=== PATIENT | female | born 1995 | race Caucasian/White ===

== ENCOUNTER → 2023-05-08 | Day surgery (SDC) | payer BC ==
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
[~2023-05-08] MED LIST: ACETIC ACID 15 DROPS/ML DROPS MISCELLANE ONE; BUPIVACAINE (PF) 0.5% 30 ML VIAL MISCELLANE ONE; DEXAMETHASONE SOD PHOSPHATE 4 MG/ML 1 ML VIAL IV ONE; FERRIC SUBSULFATE (MONSELS) JAR TOPICAL ONE; HYDROmorphone 0.5 MG/0.5 ML SYRINGE IVP PRN; IODINE/POTASSIUM IODIDE 14 ML BOTTLE TOPICAL ONE; LACTATED RINGERS 1,000 ML IV SCH; LIDOCAINE 1%-EPI 1:100,000 20 ML VIAL SUBMUCOSAL ONE; LIDOCAINE 2% INJ 20 MG/ML (2 ML VIAL) ONE; MIDAZOLAM 2 MG/2 ML VIAL ONE; ONDANSETRON 4 MG/2 ML VIAL IVP ONE; PROPOFOL 10 MG/ML 20 ML VIAL IV ONE; Pre Op ABX Message 1 EACH MISC MISCELLANE ONE; droPERidol 5 MG/2 ML VIAL IVP ONE; fentaNYL (PF) 50 MCG/ML 2 ML AMP ONE
--- NOTE | 2023-05-08 08:14 | P.OP ---
Date of Procedure: 05/08/23 Preoperative Diagnosis: LINO-1 and LINO-2 Postoperative Diagnosis: Cervical dysplasia Procedure(s) Performed: Colposcopy with loop electrocautery excision procedure Anesthesia: MELODYA Surgeon: Hyacinth Quinn Estimated Blood Loss (ml): 5 Pathology: other (Ectocervix with 12 o'clock position marked with a suture and separate piece is 6 o'clock position) Condition: stable Disposition: same day Indications for Procedure: This is a 27 y.o. of female, 1, para 1, who presents for colposcopy with loop electrocautery excision procedure due to LINO I and LINO II on colposcopy. 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 She has no plans for a future and would like definitive surgical treatment for this problem. Operative Findings: Faint acetowhite areas are noted around the entire cervix. No mosaicism was noted. Lugol white areas noted more prominently at the 6:00 border. Description of Procedure: The patient is taken to the operating room where she is placed in the dorsal lithotomy position. She is prepped and draped in the normal sterile fashion. Her bladder is drained with a catheter. A coated bivalve speculum was placed in the patient's vagina. Colposcopy is then performed using a blue light. Cervix is swabbed with 5% acetic acid solution. Transition zone is seen entirely. No specific abnormalities are visualized. Next Lugol solution is applied and a shiny white areas noted along the 6:00 border. No mosaicism was noted. Next the cervix was circumferentially injected with a 50-50 mixture of 1% lidocaine with epinephrine and half percent Marcaine. This is injected circumferentially around the cervix using a spinal needle. A total of about 6 mL were used. Next the large loop is used to swipe from left to right and then right to left using 35 W of cutting power. The specimen is removed from the field. There is still noted to be a little bit of Lugol white area noted along the 6:00 border. A separate swipe with the loop is taken to remove this portion of the specimen. Next the ball-tipped cautery was used to cauterize the bed left behind. Excellent hemostasis is noted. Monsel solution is applied. All instruments are removed from the vagina. The larger piece of ectocervix is marked at the 12 o'clock position with a white suture. The 6:00 piece is a separate piece. All sponge and needle counts are correct. The patient is then taken to recovery room in stable condition.
[2023-05-08 08:26] VITALS: RESP 16; TEMP 97.4
[2023-05-08 09:35] VITALS: BP 110/75; PULSE 74
== END | disposition home or self-care (01) ==
LOC: OR 06:20
PROVIDERS: ATTEND Obstetrics & Gynecology
DX: R87.613 High grade squamous intraepithelial lesion on cytologic smear of cervix (HGSIL) (principal); Z88.8 Allergy status to other drugs, medicaments and biological substances; Z79.899 Other long term (current) drug therapy
CPT/HCPCS: 81025; 88342; 88307; 57460; J2250; J1100; J2405; J3010; J2704; J1790; J2001; J0665

== ENCOUNTER 2024-04-24 06:00 | Inpatient (IN) | payer BC ==
[2024-04-24] MEDS: LACTATED RINGERS 1,000 ML IV SCH (06:25)
[2024-04-24 06:29] LABS: Glucose,Whole Blood 88 mg/dL (70-110)
[2024-04-24] MEDS ORDERED: METHYLERGONOVINE 0.2 MG/ML 1 ML AMP IM PRN (06:30)
[2024-04-24] MEDS ORDERED: TRANEXAMIC 1,000 MG/100ML-NACL 1,000 MG in EMPTY BAG 1 BAG IV PRN (06:30)
[2024-04-24] MEDS ORDERED: miSOPROStoL 200 MCG TAB RECTAL PRN (06:30)
[2024-04-24] MEDS ORDERED: OXYTOCIN 10 UNIT/ML 1 ML VIAL IM PRN (06:30)
[2024-04-24] MEDS ORDERED: LIDOCAINE 0.5% (PF) 5 MG/ML (50 ML SDV) SQ PRN (06:30)
[2024-04-24] MEDS ORDERED: CARBOPROST TROMETHAMINE 250 MCG/ML 1 ML AMP IM PRN (06:30)
[2024-04-24] MEDS ORDERED: OXYTOCIN 30 UNITS/500 ML NS 30 UNIT in SALINE 1 500ML.BAG IV SCH (06:30)
[2024-04-24] MEDS ORDERED: miSOPROStoL 200 MCG TAB PO PRN (06:30)
[2024-04-24] MEDS ORDERED: TERBUTALINE 1 MG/ML VIAL SQ PRN (06:30)
[2024-04-24] MEDS: OXYTOCIN 30 UNITS/500 ML NS 30 UNIT in SALINE 1 500ML.BAG IV SCH (06:45)
[2024-04-24 06:58] LABS: Basophils % (A) 0 %; Eosinophils % (A) 1 %; HCT 39.9 % (34.0-46.0); HGB 13.3 gm/dL (11.4-16.0); Lymphocytes % (A) 26 %; MCH 31.4 pg (25.0-35.0); MCHC 33.2 g/dL (31.0-37.0); MCV 94.4 fL (80.0-100.0); Mean Platelet Volume 7.9; Monocytes # (A) 0.4 k/uL (0-1.0); Monocytes % (A) 5 %; Neutrophils # (A) 5.3 k/uL (1.3-7.7); Neutrophils % (A) 67 %; Platelet Count 233 k/uL (150-450); RBC 4.23 m/uL (3.80-5.40); RDW 13.5 % (11.5-15.5); WBC 7.9 k/uL (3.8-10.6)
[2024-04-24] MEDS ORDERED: fentaNYL (PF) 50 MCG/ML 5 ML AMP ONE (10:28)
[2024-04-24] MEDS ORDERED: SODIUM CHLORIDE 0.9% 250 ML BAG ONE (10:28)
[2024-04-24] MEDS ORDERED: ROPIVACAINE 5 MG/ML 30 ML VIAL ONE (10:28)
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
--- NOTE | 2024-04-24 13:40 | P.PROBDLV ---
Vaginal Delivery Note - . Vaginal Delivery Note: Endings viable female infant delivered at 1313, weight of 7 pounds 3 ounces. 28-year-old G2, P1 at 39-1/7 weeks that presented for induction of labor this morning. Patient was admitted and Pitocin was begun. Amniotomy was performed and clear fluid was obtained. Patient became uncomfortable quite quickly after amniotomy and requested epidural. Epidural was placed without difficulty by the anesthesia department. With position changes patient made progress to complete dilation. Once completely dilated patient began pushing and had a normal spontaneous vaginal delivery of a viable female at 1313, weight of 7 pounds 3 ounces, Apgars of 9 and 9 at 1 and 5 minutes respectively. After 2- minute delay the umbilical heart was doubly clamped and cut, the placenta delivered spontaneously intact with a three-vessel cord being noted. Uterus was noted to be firm and below the umbilicus. On a complete inspection of the vaginal vault no lacerations were appreciated. Estimated blood loss 100 cc. All counts were to be correct x 2. Patient and infant tolerated delivery well and are resting comfortably.
[2024-04-24] MEDS ORDERED: ACETAMINOPHEN TAB 325 MG TAB PO PRN (18:21)
[2024-04-24] MEDS ORDERED: diphenhydrAMINE 25 MG CAP PO PRN (18:21)
[2024-04-24] MEDS ORDERED: HYDROCORTISONE 2.5% RECTAL CREAM 30 GM TUBE RECTAL PRN (18:21)
[2024-04-24] MEDS ORDERED: diphenhydrAMINE 50 MG CAP PO PRN (18:21)
[2024-04-24] MEDS ORDERED: BENZOCAINE/MENTHOL SPRAY 1 GM/SPRAY AEROSOL TOPICAL PRN (18:21)
[2024-04-24] MEDS ORDERED: LANOLIN CREAM 1 GM TUBE TOPICAL PRN (18:21)
[2024-04-24] MEDS: SENNOSIDES-DOCUSATE SODIUM 1 EACH TAB PO SCH (20:24)
[2024-04-24] MEDS: CALCIUM CARBONATE 500 MG CHEWABLE PO PRN (22:26)
[2024-04-25 05:30] LABS: Basophils % (A) 0 %; Eosinophils # (A) 0.1 k/uL (0-0.7); Eosinophils % (A) 1 %; HCT 37.2 % (34.0-46.0); HGB 11.9 gm/dL (11.4-16.0); Lymphocytes # (A) 2.2 k/uL (1.0-4.8); Lymphocytes % (A) 25 %; MCH 30.3 pg (25.0-35.0); MCHC 32.1 g/dL (31.0-37.0); MCV 94.3 fL (80.0-100.0); Mean Platelet Volume 7.7; Monocytes # (A) 0.5 k/uL (0-1.0); Monocytes % (A) 5 %; Neutrophils % (A) 67 %; Platelet Count 187 k/uL (150-450); RBC 3.94 m/uL (3.80-5.40); RDW 13.3 % (11.5-15.5); WBC 8.8 k/uL (3.8-10.6)
[2024-04-25] MEDS: IBUPROFEN 600 MG TAB PO PRN (06:10)
[2024-04-25 08:35] VITALS: BP 95/64; PULSE 81; RESP 17; TEMP 97.8
--- NOTE | 2024-04-25 09:05 | P.DS ---
Providers Date of admission: 04/24/24 06:01 Expected date of discharge: 04/25/24 Attending physician: Pam Can Primary care physician: Stated None - Discharge Diagnosis(es) (1) 39 weeks gestation of Current Visit: No Status: Acute (2) Gestational diabetes Current Visit: No Status: Acute (3) Normal spontaneous vaginal delivery Current Visit: Yes Status: Acute Hospital Course: This is a 28-year-old G2, P1 at 39-1/7 weeks that presented to labor and delivery on 04/24 for scheduled induction of labor. Patient been receiving routine care which was complicated by a diagnosis of gestational diabetes, diet-controlled. Patient was admitted to labor and delivery and Pitocin induction of labor was begun prior. Patient underwent amniotomy and clear fluid was obtained. Patient quickly became uncomfortable and requested epidural. Epidural was placed without difficulty by the anesthesia department. Patient progressed quickly to complete began pushing and had a normal spontaneous vaginal delivery of a viable female infant at 1313, weight of 7 pounds 3 ounces. No vaginal lacerations were appreciated. Patient has done well . On this day #1 she is ambulating and voiding without difficulty. She is tolerating regular diet without nausea or vomiting. She states her pain is well-controlled. She would like discharge home later today Patient Condition at Discharge: Good Plan - Discharge Summary Discharge Rx Participant: No New Discharge Prescriptions: No Action Vit No.180/Iron/Folic [ Plus Tablet] 1 each PO DAILY Discharge Medication List Vit No.180/Iron/Folic [ Plus Tablet] 1 each PO DAILY 01/31/23 [History] Follow up Appointment(s)/Referral(s): Pam Can DO [Doctor of Osteopathic Medicine] - 6 Weeks Patient Instructions/Handouts: Vaginal Delivery (GEN), Vaginal Delivery (DC) Activity/Diet/Wound Care/Special Instructions: No intercourse, or tub baths. Call with any fever, shakes or chills, with any pain not alleviated by over the counter meds, or with any questions or concerns. Upto-[id number] ibuprofen 600 mg or 3 tablets every 6 hours needed for pain Discharge Disposition: HOME SELF-CARE
== END 2024-04-25 13:25 | disposition home or self-care (01) | DRG 807 ==
LOC: 4FBP 06:01
PROVIDERS: ADMIT Obstetrics & Gynecology Obstetrics; ATTEND Obstetrics & Gynecology Obstetrics
PROC: 3E033VJ Introduction of Other Hormone into Peripheral Vein, Percutaneous Approach (ICD-10-PCS; principal; 2024-04-24)
PROC: 10907ZC Drainage of Amniotic Fluid, Therapeutic from Products of Conception, Via Natural or Artificial Opening (ICD-10-PCS; principal; 2024-04-24)
PROC: 10E0XZZ Delivery of Products of Conception, External Approach (ICD-10-PCS; principal; 2024-04-24)
DX: O24.420 Gestational diabetes mellitus in childbirth, diet controlled (principal); Z37.0 Single live birth; Z3A.39 39 weeks gestation of pregnancy
CPT/HCPCS: 85025; 86850; 86900; 86901